=== PATIENT | male | born 1965 | race Caucasian/White ===

== ENCOUNTER 2023-08-02 11:27 | Emergency (ER) | payer OTHER ==
[~2023-08-02] VITALS: Ht 175.3 cm; Wt 77.6 kg
[2023-08-02] MEDS ORDERED: LIDOCAINE 2% 20 ML MDV ONE (11:59)
[2023-08-02] MEDS ORDERED: TDAP [DIPH/PERTUSSIS/TET] 0.5 ML VIAL IM ONE ×2 (11:59→12:00)
[2023-08-02] MEDS ORDERED: LIDOCAINE 2% 20 ML MDV TP ONE (12:00)
[2023-08-02 13:25] VITALS: BP 141/66; TEMP 98.4; O2SAT 100
== END 2023-08-02 13:03 | disposition home or self-care (01) ==
LOC: ER 11:31
DX: S61.214A Laceration without foreign body of right ring finger without damage to nail, initial encounter (principal); I10 Essential (primary) hypertension; W26.8XXA Contact with other sharp object(s), not elsewhere classified, initial encounter; Y93.89 Activity, other specified; Y92.89 Other specified places as the place of occurrence of the external cause; Y99.8 Other external cause status
CPT/HCPCS: 12001; 73140; 90471; 90715; 99283; A6403; J3490

== ENCOUNTER 2023-08-06 08:30 | Emergency (ER) | payer OTHER ==
[~2023-08-06] VITALS: Ht 177.8 cm; Wt 73.5 kg
[2023-08-06 08:45] VITALS: BP 134/71; TEMP 98.4
[2023-08-06] MEDS ORDERED: CEPH500C2 PO (08:45)
[2023-08-06 08:54] VITALS: O2SAT 100
[2023-08-06] MEDS ORDERED: BACI/NEOM/POLY B OINT PKT 1 UDPKT PACKET TP ONE (09:00)
== END 2023-08-06 09:00 | disposition home or self-care (01) ==
LOC: ER 08:33
DX: S61.214D Laceration without foreign body of right ring finger without damage to nail, subsequent encounter (principal); I10 Essential (primary) hypertension; X58.XXXD Exposure to other specified factors, subsequent encounter

== ENCOUNTER 2023-08-19 10:51 | Emergency (ER) | payer OTHER ==
[~2023-08-19] VITALS: Ht 175.3 cm; Wt 79.8 kg
[~2023-08-19 10:51] MED LIST: CEPH500C2 PO
[2023-08-19 10:59] VITALS: BP 131/69; TEMP 97.8
[2023-08-19 11:30] VITALS: O2SAT 99
== END 2023-08-19 11:30 | disposition home or self-care (01) ==
LOC: ER 10:51
DX: S61.214D Laceration without foreign body of right ring finger without damage to nail, subsequent encounter (principal); I10 Essential (primary) hypertension; Z79.899 Other long term (current) drug therapy; X58.XXXD Exposure to other specified factors, subsequent encounter

== ENCOUNTER 2023-08-21 10:40 | Emergency (ER) | payer OTHER ==
[~2023-08-21] VITALS: Ht 177.8 cm; Wt 79.4 kg
[2023-08-21 10:51] VITALS: BP 137/67; TEMP 98.4; O2SAT 100
== END 2023-08-21 11:29 | disposition home or self-care (01) ==
LOC: ER 10:42
DX: S61.214D Laceration without foreign body of right ring finger without damage to nail, subsequent encounter (principal); I10 Essential (primary) hypertension; Z79.899 Other long term (current) drug therapy; X58.XXXD Exposure to other specified factors, subsequent encounter